=== PATIENT | female | born 1960 | race Caucasian/White ===

== ENCOUNTER 2017-04-07 07:03 | Emergency (ER) | payer MEDICARE, BC ==
[2017-04-07 07:18] VITALS: BP 125/72
[2017-04-07] MEDS ORDERED: Ipratropium 0.5MG/2.5ML NEB* 0.5 MG/2.5 ML NEB.SOLN INH ONE (07:39)
[2017-04-07] MEDS ORDERED: Albuterol 2.5 MG/3 ML NEB.SOL* (0.083%) INH ONE (07:39)
--- NOTE | 2017-04-07 09:49 | UC ---
Alirio Collier Anna, scribed for Haydee Marroquin DO on 04/07/17 at 0733 . Respiratory Complaint HPI - HPI Summary HPI Summary: Patient is a 57 y/o female coming to [facility] presenting with an intermittent cough that began nine days ago. She has additionally had sinus congestion, nasal drainage, COWART, ear pressure, right ear pain, gland pressure, and myalgia. She experiences some SOB when coughing, and her coughing has caused her to gag and experience emesisx1 at times. She denies fever, sore throat, hemoptysis, nausea, arthralgia, abdominal pain, or rash. Her history is significant for asthma and HTN. She has never used steroids for her asthma. She quit smoking 14 years ago after 20 pack year hx.. Patient medications were reviewed this visit. - History of Current Complaint Chief Complaint: UCRespiratory Stated Complaint: CONGESTION Hx Obtained From: Patient ?: No Onset/Duration: Gradual Onset, Lasting Weeks, Still Present Timing: Intermittent Episodes Severity Initially: Moderate Severity Currently: Moderate Character: Sputum Description: - yellow green Associated Signs And Symptoms: Positive: Wheezing, URI, Nasal Congestion, Sinus Discomfort. Negative: Fever, Chills, Pleuritic Chest Pain, Hemoptysis, Dizziness - Allergies/Home Medications Allergies/Adverse Reactions: Allergies Allergy/AdvReac Type Severity Reaction Status Date / Time Codeine Allergy VOMITING, Verified 04/07/17 07:09 HIVES Morphine Allergy NAUSEA, Verified 04/07/17 07:09 DEPRESSION, CRYING Cefazolin AdvReac Intermediate Nausea And Verified 04/07/17 07:09 Vomiting Oxycodone [From Percocet] AdvReac Mild Vomiting Verified 04/07/17 07:09 Home Medications: Home Medications guaiFENesin ER TAB [Mucinex*] 1 tab PO DAILY PRN 04/07/17 [History Confirmed ] PMH/Surg Hx/FS Hx/Imm Hx Endocrine History Of: Reports: 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 1990 LEFT FOREARM [facility] 04/1991 TENDON TRANSFERS LOWER LEFT ARM, [place]. 10/2006 LAPAROSCOPIC COLECTOMY, [place]. 1989 TOTAL HYSTERECTOMY, [facility]. 10/2002 RIGHT CARPAL TUNNEL RELEASE, [facility]. 2008 LEFT THUMB REPAIR, [facility]. 03/1985 BILATERAL TUBAL LIGATION, [facility]. 2002 LEFT FOOT REPAIR WITH SCREWS, [facility]. 02/1995 LAPAROSCOPIC CHOLECYSTECTOMY, [facility]. 07/2013 LAP GASTRIC SLEEVE BYPASS WITH HIATAL HERNIA REPAIR, [place]. 10/2012 REMOVED AND REPLACEMENT OF SCREWS RIGHT ANKLE, [facility]. 12/24 REPLACE LONG SCREW WITH SHORT SCREWS LEFT ANKLE, [facility]. 02/21 REPLACE LONG SCREWS WITH SHORT SCREWS RIGHT ANKLE , [facility]. 09/2013-EXTERNAL FIXATOR RIGHT ANKLE-[facility]. 2013 & 2014 NUMEROUS SURGERIES ON ANKLES [place] - Family History Known Family History: Positive: Cardiac Disease, Hypertension, Diabetes - Social History Lives: With Family Alcohol Use: None Substance Use Type: None Smoking Status (MU): Former Smoker Type: Cigarettes Amount Used/How Often: 1PPD 20 YRS Length of Time of Smoking/Using Tobacco: 20 YRS Have You Smoked in the Last Year: No When Did the Patient Quit Smoking/Using Tobacco: 2002 Household Exposure Type: Cigarettes - Immunization History Most Recent Influenza Vaccination: 2011 Most Recent Tetanus Shot: Within the past 10 years Most Recent Pneumonia Vaccination: Never Review of Systems Constitutional: Negative Skin: Negative Eyes: Negative ENT: Ear Ache - pressure, right ear pain, Nasal Discharge, Other - gland pressure Respiratory: Cough Cardiovascular: Negative Gastrointestinal: Vomiting Genitourinary: Negative Motor: Negative Neurovascular: Negative Musculoskeletal: Myalgia Neurological: Headache Psychological: Negative All Other Systems Reviewed And Are Negative: Yes Physical Exam Triage Information Reviewed: Yes Appearance: Well-Appearing, No Pain Distress, Well-Nourished Vital Signs: Initial Vital Signs Temp 98.4 F 04/07/17 07:13 Pulse 67 04/07/17 07:13 Resp 16 04/07/17 07:13 BP 125/72 04/07/17 07:13 Pulse Ox 97 04/07/17 07:13 Vital Signs Reviewed: Yes Eyes: Positive: Conjunctiva Clear. Negative: Discharge ENT: Positive: Pharynx normal, TMs normal, Other: - Sinus tenderness, worst over bilateral maxillary sinus. Negative: Tonsillar swelling, Tonsillar exudate , Trismus Neck exam: Normal Neck: Positive: Supple, Tenderness @ - lymphadenopathy Respiratory: Positive: No respiratory distress, No accessory muscle use, Wheezing - diffuse Cardiovascular: Positive: RRR, No Murmur Musculoskeletal Exam: Normal Neurological: Positive: Alert, Muscle Tone Normal Psychological Exam: Normal Psychological: Positive: Age Appropriate Behavior Skin Exam: Other - warm, dry, normal color UC Diagnostic Evaluation - Laboratory O2 Sat by Pulse Oximetry: 97 Respiratory Course/Dx - Course Course Of Treatment: re-evaluated s/p neb: significant subjective improvement in breathing/on auscultation better air movement, decreased wheezing though significant wheezing still present. Asked patient whether she has been able to use augmentin and Vicodin in the past, and she confirms that she has been able to use it. - Differential Dx/Diagnosis Differential Diagnosis/HQI/PQRI: Asthma, Bronchitis, Lower Resp Infection, Sinusitis Provider Diagnoses: Bronchospasm, sinusitis Discharge - Discharge Plan Condition: Stable Disposition: HOME Prescriptions: Albuterol HFA INHALER* [Ventolin HFA Inhaler*] 2 puff INH Q4H PRN #1 mdi PRN Reason: Sob/Wheezing Amoxicillin/Clavulanate TAB* [Augmentin TAB 875*] 875 mg PO BID #20 tab Benzonatate CAP* [Tessalon 100 MG CAP*] 100 mg PO TID PRN #30 cap PRN Reason: Cough HYDROcodone/ACET. 7.5/325 LIQ* [Lortab Elixir 7.5/325 per 15 ml *] 10 ml PO BEDTIME #100 ml MDD 10ml Hydrocodone-Guaifenesin [Flowtuss 2.5-200 mg/5Ml] 10 ml PO BEDTIME #100 ml MDD 10ML predniSONE TAB* [Deltasone TAB*] 40 mg PO DAILY #10 tab Patient Education Materials: Benzonatate (By mouth), Albuterol (By breathing), Amoxicillin/Clavulanate Potassium (By mouth), Guaifenesin/Hydrocodone (By mouth) , Sinusitis (ED), Bronchospasm (ED) Referrals: Giovanni Keller MD [Primary Care Provider] - If Needed () Additional Instructions: TRY USING THE NETTI POT IN THE MORNINGS DISCUSSED. YOU MUST ALWAYS USE CLEAN WATER. REMEMBER, POSTURE IS AN IMPORTANT FACTOR IN SINUS DRAINAGE. MOVE YOUR NECK, BREATHE. INHALED BRONCHODILATORS: You have received a prescription for an inhaled bronchodilator -- a medication which stimulates the airways in the lung to dilate. This improves the flow of air in asthma, bronchitis, and emphysema. These medicines have some similarity to adrenaline, and can cause similar side effects: shakiness, racing heart, and a sense of nervousness. These side effects decrease with time. Contact your doctor if these side effects are severe. Do not over-use the medicine. Too-frequent use of the inhaler may make it ineffective. Call your doctor if the inhaler is not controlling your symptoms at the prescribed doses. COUGH-SUPPRESSANT & EXPECTORANT MEDICATION: You are to use a cough medication as needed for relief of symptoms. This medicine is a combination of an expectorant (to make the mucous thinner and more easily "coughed up") and a cough suppressant (to reduce the frequency of coughing). The cough-suppressant medicine is related to narcotics. You may experience mild nausea and sleepiness. Some patients who are very sensitive to narcotics may have stomach pain from this medicine. Taking the medicine with food reduces these side effects. Do not drive or work with machinery until you know how this medicine affects you. The expectorant should have no side effects. Iodine-containing expectorants (such as organidin) should not be taken by persons with active thyroid disease unless approved by your doctor. Call the doctor if you develop shortness of breath, hives, rash, itching, lightheadedness, or severe nausea and vomiting. EXPECTORANT MEDICATION: WE SENT IN A SCRIPT FOR MUCINEX SO THAT IT IS EASIER FOR YOU TO PICK THE RIGHT MED AT THE PHARMACY. HOWEVER, YOU CAN ALSO GO TO THE [employer] [facility] [facility] AND BUY PLAIN GUAIFENESIN WITHOU BINDERS OR FILLERS. An expectorant medicine has been prescribed. This type of drug makes mucous thinner, helping the sinuses, nose, and bronchial tubes to remain free of pus and mucous. Expectorants make a cough less severe and more comfortable, and help infected sinuses drain. In general, antihistamines defeat the purpose of the expectorant by making mucous thicker. They should be avoided unless specifically recommended by your physician. TESSALON PERLES: You have received a prescription for Tessalon Perles (benzonatate). This is a non-narcotic medicine for relief of cough. It usually works in about 15- 20 minutes and lasts around four hours. Tessalon Perles should be swallowed. They should not be chewed or dissolved in the mouth (this can produce temporary numbing of the mouth and choking can occur). If you develop any adverse effects such as wheezing, shortness of breath, hives, rash, itching, or lightheadedness, please return at once.Use coconut oil as needed for your skin. Remember the importance of posture and breathing through your nose for drainage as was discussed. A Nettipot can be used with warm salt water, recommended in the morning. Stretching out your neck can help pull congestion and sinus drainage out. If the symptoms do not alleviate, take the antibiotic three days from now. If you take the antibiotic, partner this with a probiotic like local yogurt. CORTICOSTEROID MEDICATION: You have been given a medicine of the cortisone class. This medication is used to control inflammation or allergy. It is usually only given for a short period of time, until the acute process subsides. There are usually no side effects from short-term use of cortisone-like medications. Some persons feel an increased sense of well-being and are not sleepy at bedtime. Long-term use of cortisone medications is best avoided, unless required for a severe condition. If your condition does not remit, or relapses after the course of corticosteroid medication, you should consult your physician. Contact the physician if you develop lightheadedness, black or tarry stools , swelling of the legs, or significant rapid change in weight. The documentation as recorded by the Alirio aguilar Anna accurately reflects the service I personally performed and the decisions made by , Haydee Marroquin DO.
== END 2017-04-07 08:30 | disposition home or self-care (01) ==
LOC: UCEAST 07:03
DX: J98.01 Acute bronchospasm (principal); J32.9 Chronic sinusitis, unspecified; I10 Essential (primary) hypertension; Z87.442 Personal history of urinary calculi; F41.9 Anxiety disorder, unspecified; F32.9 Major depressive disorder, single episode, unspecified; Z88.1 Allergy status to other antibiotic agents; Z88.5 Allergy status to narcotic agent; Z87.891 Personal history of nicotine dependence
CPT/HCPCS: 99212; G0463; J7644

== ENCOUNTER 2020-03-10 08:29 | Day surgery (SDC) | payer MEDICARE, BC ==
[~2020-03-10 08:29] MED LIST: Buffered Lidocaine 1% SYRIN 1 ml INTRADERM ONE; Famotidine IV 10 MG/ML 2 ml VIAL (20 mg) IV ONE; Lactated Ringers 1000 ml BAG 1,000 ML IV SCH
[2020-03-10] MEDS ORDERED: Buffered Lidocaine 1% SYRIN 1 ml INTRADERM ONE (08:42)
[2020-03-10] MEDS ORDERED: ceFAZolin 2 GM PREMIX in ORs 0 GM/0 ML BAG ONE (08:42)
[2020-03-10] MEDS ORDERED: Famotidine IV 10 MG/ML 2 ml VIAL (20 mg) ONE (08:43)
[2020-03-10] MEDS ORDERED: diPHENhydraMINE IV 50 MG/ML 1 ml VIAL (BENADRYL) IV PRN (09:18)
[2020-03-10] MEDS ORDERED: Ondansetron 4 mg VIAL 2 MG/ML 2 ml VIAL IV PRN (09:18)
[2020-03-10] MEDS ORDERED: fentaNYL 100 mcg/2 ml 50 MCG/ML VIAL IV PRN (09:18)
[2020-03-10] MEDS ORDERED: Levalbuterol 0.63MG/3ML NEB UNIT OF USE INH PRN (09:18)
[2020-03-10] MEDS ORDERED: DiMENhydriNATE IV 50 mg/ml 1 ml VIAL IV PUSH PRN (09:18)
[2020-03-10] MEDS ORDERED: Naloxone 0.4 mg VIAL 0.4 mg/ml 1 ml VIAL IV PRN (09:18)
[2020-03-10] MEDS ORDERED: Midazolam 2 mg/2 ml VIAL 1 mg/ml 2 ml VIAL (2 mg) ONE (09:26)
[2020-03-10] MEDS ORDERED: Bupivacaine 0.25% SDV 30 ML ONE (09:47)
[2020-03-10] MEDS ORDERED: Clindamycin 900 MG/D5W BAG(*) 900 MG/50 ML BAG IVPB ONE (09:56)
[2020-03-10] MEDS ORDERED: Acetaminophen IV 1 GM/100ML 100 ML ONE (10:11)
[2020-03-10] MEDS ORDERED: Lidocaine 2% PF 5 ML VIAL ONE (10:11)
[2020-03-10] MEDS ORDERED: Propofol 10 MG/ML 20 ML BTL ONE (10:12)
[2020-03-10] MEDS ORDERED: Ondansetron 4 mg VIAL 2 MG/ML 2 ml VIAL ONE (10:12)
[2020-03-10] MEDS ORDERED: Dexamethasone IV 4 MG/ML VIAL 1 ml VIAL ONE (10:12)
[2020-03-10] MEDS ORDERED: fentaNYL 100 mcg/2 ml 50 MCG/ML VIAL ONE (10:21)
[2020-03-10] MEDS ORDERED: Labetalol IV 5 MG/ML 20 ml VIAL ONE (10:42)
[2020-03-10 12:31] VITALS: BP 114/72
== END 2020-03-10 12:34 | disposition home or self-care (01) ==
LOC: OR 08:29
PROVIDERS: ATTEND Orthopaedic Surgery Hand Surgery